=== PATIENT | male | born 1990 | race Caucasian/White ===

== ENCOUNTER 2016-08-10 17:27 | Emergency (ER) | payer MEDICAID, OTHER ==
[~2016-08-10] VITALS: Ht 182.9 cm; Wt 84.1 kg
[~2016-08-10 17:27] MED LIST: DEP500ER PO; LORA-303 PO; OLAN5TAB25 PO
[2016-08-10 17:34] VITALS: BP 140/87; PULSE 86; RESP 16; O2SAT 98
--- NOTE | 2016-08-10 20:03 | ED.REPORT ---
HPI-Psychiatric Illness Date of Service Aug 10, 2016 ED Provider: Derek Cabrera MD A 26 year old male with a history of bipolar disorder presents to the ED with worsening depression and concern for suicidal ideation that began a few weeks ago. Patient recently became homeless, lost his job, broke up with his girlfriend and was recently released from [facility]. On New , the patient states that he attempted to hang himself. His mental health counselor instructed him to visit the ED tonight because of concern for suicidal ideation. He recently stopped his medications including 500mg of Depakote 2x per day, lithium and a taper for the meth. The patient last relapsed on meth and THC 5 days ago. He is concerned that if he stays with his friends tonight, he will relapse. Patient is currently on the waiting list at [facility]. He reports that his recent difficulties began after using steroids over the past summer. Patient believes he lost approx. 30 lbs this summer. Nursing Notes Stated Complaint: MENTAL HEALTH Chief Complaint: Psychiatric Complaint Nursing Notes Reviewed: Yes Allergies: Coded Allergies: haloperidol (Verified Allergy, Severe, Anaphylaxis, 08/10/16) Scheduled Divalproex ER (Depakote ER) 500 Mg Tab.er.24 1,500 MG PO HS Divalproex ER (Depakote ER) 500 Mg Tablet 500 MG PO BID *DAILY USE ONLY* Swallowed whole without chewing to avoid local irritation of the mouth and throat. Olanzapine ODT (Zyprexa Zydis) 5 Mg Tab.disper 20 MG PO HS Scheduled PRN Lorazepam (Ativan) 1 Mg Tablet 1 MG PO TID PRN PRN For Anxiety General Time Seen by MD: 20:02 Chief Complaint Suicidal ideation Hx Obtained From: Patient Arrived By: Walk-in Onset Occurred: More than a week ago... (2 weeks) Context of Onset: Illicit drug use, Marijuana use Symptom Duration: Since onset Progression Since Onset: Unchanged Associated with: Reports: Depression Pertinent Negative: Pt denies other symptoms Recent Healthcare: No recent doctor visit, No recent hospitalization Risk-Psychiatric Illness Suicide Risk Stratification Suicide Risk Factors - Adult: : Previous attempt: Substance abuse RF Statements: Risk factors reviewed Past Medical History Past Medical History Bipolar disorder 2 previous admits for suicidal ideation Past Surgical History None reported. Smoking History Unknown if Ever Smoker Social History Drug Use: Meth, THC Other Social History: Poor social support, Homeless Ambulatory Status Independent Review of Systems Constitutional: Denies: Chills, Fever Respiratory: Denies: Shortness of breath Cardiovascular: Denies: Chest pain GI: Denies: Abdominal pain, Nausea, Vomiting Neurologic: Denies: Change LOC Psychiatric: Reports: Anxiety, Depression, Stress, Suicidal ideation, Denies: Homicidal ideation Complete sys rev & neg: except as marked. Physical Exam Initial Vital Signs Vital Signs (First) Date Time Temp Pulse Resp B/P Pulse Ox O2 Delivery O2 Flow Rate FiO2 08/10/16 17:34 36.5 86 16 140/87 98 Room Air Initial VS: Reviewed Head / Eyes: Atraumatic, Normocephalic, PERRL Neck: Supple, Non-tender, Full range of motion Extremities: Vascular intact, Neuro intact, No swelling, No tenderness Skin: Warm, Dry, No cyanosis General/Constitutional: Awake, Alert GENERAL: Patient is neatly dressed. Neurologic: Oriented X3, Speech NL Psychiatric: Mood NL, Not suicidal, Not homicidal PSYCH: Slighly guarded affect Upper Extremity / MS: Atraumatic, Neurologic intact, Vascular intact Lower Extremity / Pelvis / MS: Atraumatic, Neurologic intact, Vascular intact Interpretation & Diagnostics Lab Results Interpretation Test 08/10/16 20:31 Hold Urine Received (Received) Lab Results Interpretation: U/A Positive: Meth THC Re-Eval/Medical Decision Re-Evaluation/Progress : Time of Eval: 20:51 )( Re-Eval Psychiatric: No suicidal ideation, No homicidal ideation Patient Status: Condition improved Re-Evaluation/Progress Note: Patient is rechecked. He is requesting to be discharged. Patient states that he will return if he begins to experience any suicidal ideation. He understands and agrees to the treatment plan. Counseled Regarding: Diagnosis, Lab results, Need for follow-up, When/why to return to ED Discharge & Departure Impression: Primary Impression: Acute situational disturbance )( Condition at Discharge: No danger to self, No danger to others Disposition: Home Discharge Condition All VS Reviewed: Yes Condition: Stable Additional Instructions: Follow up with martha liu. re-start depakote. return to ED if having increasing thoughts of self-harm. don't use meth. Referrals: [facility] Scribe Attestation Portions of this note were transcribed by Chepe Lang. Dr. Rick Soto personally performed the history, physical exam and medical decision-making; I reviewed and confirmed the accuracy of the information in the transcribed note. Signed by: Chepe Lang, 08/10/16, 2100. copies to: [facility] Derek Cabrera MD Aug 10, 2016 20:03 CHEPE LANG Aug 10, 2016 20:07
[2016-08-10] MEDS ORDERED: DEP500ER PO (20:49)
== END 2016-08-10 21:05 | disposition home or self-care (01) ==
LOC: SED 17:27
DX: F43.0 Acute stress reaction (principal); F31.9 Bipolar disorder, unspecified; Z59.0 Homelessness; Z88.8 Allergy status to other drugs, medicaments and biological substances

== ENCOUNTER 2016-09-06 22:38 | Emergency (ER) | payer OTHER ==
[~2016-09-06] VITALS: Ht 182.9 cm; Wt 84.1 kg
[2016-09-06 22:41] VITALS: BP 120/80; PULSE 68; RESP 16; O2SAT 99
[2016-09-06 22:51] VITALS: BP 122/58; PULSE 101; RESP 18; O2SAT 97
--- NOTE | 2016-09-07 00:19 | ED.REPORT ---
HPI-Extremity Problem Lower Date of Service Sep 07, 2016 ED Provider: Dr. John Gunter D.O. A 26 year old male with a history of bipolar disorder, methamphetamine use, and suicidal ideation presents to the ED with a left ankle injury onset two hours prior to arrival. The patient was skateboarding when he landed from a height onto his left foot, internally rotating his ankle. The area immediately swelled and the patient currently reports ankle pain and paresthesia. He denies hitting his head or neck and did not lose consciousness. Nursing Notes Stated Complaint: POSS BROKEN ANKLE Chief Complaint: Extremity Trauma Nursing Notes Reviewed: Yes Allergies: Coded Allergies: haloperidol (Verified Allergy, Severe, Anaphylaxis, 08/10/16) Scheduled Divalproex ER (Depakote ER) 500 Mg Tab.er.24 1,500 MG PO HS Divalproex ER (Depakote ER) 500 Mg Tablet 500 MG PO BID *DAILY USE ONLY* Swallowed whole without chewing to avoid local irritation of the mouth and throat. Olanzapine ODT (Zyprexa Zydis) 5 Mg Tab.disper 20 MG PO HS Scheduled PRN Lorazepam (Ativan) 1 Mg Tablet 1 MG PO TID PRN PRN For Anxiety General Time Seen by MD: 00:19 Chief Complaint Ankle injury left Hx Obtained From: Patient Arrived By: Walk-in Onset Occurred: 1 - 4 hours ago Symptom Duration: Since onset Caused by: Accidental, Fall from height..., Sports injury (Skateboarding) Location: : Ankle left Quality: Painful Severity: Current: Moderate Severity: Maximum: Moderate Associated with: Reports: Swelling (Left ankle), Denies: Fever, Neck pain Pertinent Negative: Relieved by nothing Immunizations: Tetanus w/in 5 - 10 yrs Recent Healthcare: No recent doctor visit Past Medical History Past Medical History Bipolar disorder 2 previous admits for suicidal ideation Past Surgical History None reported. Smoking History Unknown if Ever Smoker Social History Drug Use: Meth, THC Other Social History: Poor social support, Homeless Ambulatory Status Independent Review of Systems Review of Systems Note: + Left ankle paresthesia Constitutional: Denies: Fever Musculoskeletal: Reports: Joint pain (Left ankle), Joint swelling (Left ankle) , Denies: Neck pain Neurologic: Denies: Change LOC, Headache Complete sys rev & neg: except as marked. Respiratory: Denies: Non-productive cough, Shortness of breath GI: Denies: Vomiting Physical Exam Initial Vital Signs Vital Signs (First) Date Time Temp Pulse Resp B/P Pulse Ox O2 Delivery O2 Flow Rate FiO2 09/06/16 22:51 36.6 101 18 122/58 97 Room Air Initial VS: Reviewed Head / Eyes: Atraumatic, Normocephalic ENT: Conjunctiva normal, No scleral icterus Neck: Supple, Full range of motion Skin: Warm, Dry, No cyanosis Neurologic: Alert, Oriented, Nonfocal Psychiatric: Mood/affect normal, Behavior normal, Normal thought content Ankle / Foot: Neurologic intact, Vascular intact Left Ankle: Positive: Swelling present..., Tender lateral malleolus, Tender medial malleolus, Tenderness present... Left Foot: Positive: Tenderness present... (Dorsal aspect) General/Constitutional: Awake, Alert Interpretation & Diagnostics X-Ray Interpretation Xray Interpretation: No fracture Study Performed: 3 View X-Ray Ordered: Foot left Interpretation / Wet Read by: Wet read ED physician Xray Interpretation: No fracture Study Performed: 3 View X-Ray Ordered: Ankle left Interpretation / Wet Read by: Wet read ED physician Re-Eval/Medical Decision Source of Hx: Old records Re-Evaluation/Progress : Time of Eval: 00:20 Patient Status: Condition improved Re-Evaluation/Progress Note: Patient was placed in a well-fitting CAM boot. Discussed with patient x-ray results, diagnosis, and plan for discharge. Follow-up and return to the ER instructions given. Patient agrees with plan for care and all questions were addressed. Counseled Regarding: Diagnosis, Need for follow-up, When/why to return to ED Discharge & Departure Impression: Primary Impression: Ankle sprain Encounter type: initial encounter Involved ligament of ankle: unspecified ligament Laterality: left Qualified Code: S93.402A - Sprain of unspecified ligament of left ankle, initial encounter Disposition: Home Discharge Condition All VS Reviewed: Yes Condition: Improved Patient Instructions: Ankle Sprain (GEN), Foot Sprain (ED), Crutch Instructions (ED) Additional Instructions: Thank you for entrusting us with your care. Wear the CAM boot and use crutches for all ambulation. Elevate your foot as much as possible. Please take Motrin 800mg every 8 hours for moderate pain. 1-2 Percocet every six hours as needed for severe pain. Do not drink alcohol, drive, or consume acetaminophen while taking Percocet. Call your primary care provider tomorrow or the referral orthopedist for a follow-up appointment. Return to the ER with any new or worsening symptoms. Referrals: [facility] (PCP) Felipe Willson Attestation Portions of this note were transcribed by Agnes Nicholas. I, Dr. Gunter, personally performed the history, physical exam, and medical decision-making; I reviewed and confirmed the accuracy of the information in the transcribed note. Signed by: Jer Tafoya, 09/07/2016, 01:11 copies to: Felipe Willson DO; [facility] John Gunter DO Sep 07, 2016 00:19 AGNES NICHOLAS Sep 07, 2016 00:33
[2016-09-07] MEDS ORDERED: _oxyCODONE/APAP 5-325 mg Tablet PO PRN (00:30)
--- NOTE | 2016-09-07 09:08 | DRSVH ---
PROCEDURE: X-RAY LEFT ANKLE, MINIMUM THREE VIEWS ([id number]) INDICATIONS: trauma TECHNIQUE: 3 views of the ankle were acquired. COMPARISON: None. FINDINGS: Bones: No fractures or dislocations. Ankle mortise is normally aligned. No suspicious bony lesions . Soft tissues: No tibiotalar joint effusion. Achilles tendon appears normal. IMPRESSION: No displaced fracture seen. If there is continued pain, followup exam or additional saul ging such as MRI or CT could be performed for further assessment. Dictated by: Cayden Alvarado RRA Interpreted: Billy Mary MD on 09/07/2016 at 9:07 Transcribed by: CRISTIANA on 09/07/2016 at 9:07 Approved by: Billy Mary M.D. on 09/07/2016 at 13:27
--- NOTE | 2016-09-07 09:08 | DRSVH ---
PROCEDURE: X-RAY LEFT FOOT COMPLETE, MINIMUM THREE VIEWS ([id number]) INDICATIONS: trauma TECHNIQUE: 3 views of the foot were acquired. COMPARISON: None. FINDINGS: Bones: No fractures or dislocations. No suspicious bony lesions. Soft tissues: No tibiotalar joint effusion. Achilles tendon appears normal. IMPRESSION: No displaced fracture seen. If there is continued pain, followup exam or additional saul ging such as MRI or CT could be performed for further assessment. Dictated by: Cayden Alvarado [facility] Interpreted: Billy Mary MD on 09/07/2016 at 9:08 Transcribed by: CRISTIANA on 09/07/2016 at 9:08 Approved by: Billy Mary M.D. on 09/07/2016 at 13:27
== END 2016-09-07 01:16 | disposition home or self-care (01) ==
LOC: SED 22:38
DX: S93.402A Sprain of unspecified ligament of left ankle, initial encounter (principal); V00.131A Fall from skateboard, initial encounter; Y92.410 Unspecified street and highway as the place of occurrence of the external cause; Y93.51 Activity, roller skating (inline) and skateboarding; Y99.8 Other external cause status; F31.9 Bipolar disorder, unspecified; F15.20 Other stimulant dependence, uncomplicated; Z91.5 Personal history of self-harm; Z59.0 Homelessness; Z88.8 Allergy status to other drugs, medicaments and biological substances